=== PATIENT | female | born 1950 | race Caucasian/White ===

== ENCOUNTER → 2016-10-30 | Outpatient (CLI) | payer OTHER | LOC: CIMAGING 10:16 | DX: Z12.31 Encounter for screening mammogram for malignant neoplasm of breast (principal) | CPT/HCPCS: G0202 ==

== ENCOUNTER 2017-07-12 06:30 | Day surgery (SDC) | payer OTHER ==
[~2017-07-12 06:30] MED LIST: ceFAZolin 2 GM/SWFI 2 GM/20 ML SYR IVP ONE
[2017-07-12] MEDS ORDERED: LIDOCAINE 1% 2 ML INJ ONE (06:55)
[2017-07-12] MEDS ORDERED: LR 1,000 ML IV ONE (07:06)
[2017-07-12] MEDS ORDERED: LIDOCAINE 1% 2 ML INJ ID PRN (07:06)
[2017-07-12 07:25] VITALS: PULSE 70
[2017-07-12] MEDS ORDERED: ceFAZolin 2 GM/SWFI 2 GM/20 ML SYR IVP ONE (07:30)
--- NOTE | 2017-07-12 07:36 | PDHPUP ---
History & Physical Update H&P update statement: This history and physical update is based on an assessment of the patient which was completed after admission or registration (within 24 hours), but prior to the surgery/procedure.
[2017-07-12] MEDS ORDERED: BUPIVACAINE 0.25% 30 ML SDV ONE (07:41)
[2017-07-12] MEDS ORDERED: ceFAZolin 1 GM/5 ML SYR ONE (07:42)
[2017-07-12] MEDS ORDERED: MIDAZOLAM 2 MG/2 ML VIAL IVP ONE (08:01)
--- NOTE | 2017-07-12 08:03 | PDANEPAE ---
ANE Past Medical History - Cardiovascular History Hx Hypertension: No Hx Arrhythmias: No Hx Chest Pain: No Hx Coronary Artery / Peripheral Vascular Disease: No Hx CHF / Valvular Disease: No - Pulmonary History Hx COPD: No Hx Asthma/Reactive Airway Disease: Yes Hx Recent Upper Respiratory Infection: No Hx Oxygen in Use at Home: No Hx Sleep Apnea: No Sleep Apnea Screening Result - Last Documented: Negative - Neurologic History Hx Cerebrovascular Accident: No Hx Seizures: No Hx Dementia: No - Endocrine History Hx Diabetes: No - Renal History Hx Renal Disorders: No - Liver History Hx Hepatic Disorders: No - Neurological & Psychiatric Hx Hx Neurological and Psychiatric Disorders: No - Cancer History Hx Cancer: No - Congenital Disorder History Hx Congenital Disorders: No - GI History Hx Gastrointestinal Disorders: No - Other Health History Other Health History: BRUISES EASILY - Chronic Pain History Chronic Pain: No - Surgical History Prior Surgeries: R CATARACT 10/02. N/A ANE Review of Systems Review of Systems: - Exercise capacity METS (RN): 4 METS ANE Patient History - Allergies Allergies/Adverse Reactions: metronidazole [From Flagyl] Allergy (Verified 06/06/12 19:10) IRRITATION Metronidazole HCl [From Flagyl] Allergy (Verified 04/13/11 07:22) - Home Medications Home medications: home medication list seen and reviewed, over the counter medications & supplements Home Medications: Ascorbic Acid 06/25/17 [Last Taken 06/21/17] Aspirin 81mg (*) 06/25/17 [Last Taken 06/21/17] Calcium + D3 ER Tablet 06/25/17 [Last Taken 06/21/17] Cranberry 06/25/17 [Last Taken 06/21/17] Glucosamine & Chondroitin Cap 06/25/17 [Last Taken 06/21/17] Multi-Vitamin Daily 06/25/17 [Last Taken 06/21/17] VITAMIN D 06/25/17 [Last Taken 06/21/17] Vitamin E 06/25/17 [Last Taken 06/21/17] - NPO status NPO Since - Liquids (Date): 07/11/17 NPO Since - Liquids (Time): 19:00 NPO Since - Solids (Date): 07/11/17 NPO Since - Solids (Time): 19:00 - Anes Hx Anes Hx: no prior problems - Smoking Hx Smoking Status: Light smoker - Family Anes Hx Family Hx Anesthesia Complications: NONE ANE Labs/Vital Signs - Vital Signs Blood Pressure: 135/79 Heart Rate: 70 Respiratory Rate: 18 O2 Sat (%): 92 Height: 160.02 cm Weight: 71.214 kg ANE Physical Exam - Airway Mallampati Score: Class 2 Mouth exam: normal dental/mouth exam - Pulmonary Pulmonary: no respiratory distress, no rales or rhonchi, clear to auscultation - Cardiovascular Cardiovascular: regular rate and rhythym, no murmur, rub, or gallop - ASA Status ASA Status: I ANE Anesthesia Plan Anesthesia Plan: GA with mask
[2017-07-12] MEDS ORDERED: fentaNYL 100 MCG/2 ML INJ ONE (08:11)
[2017-07-12] MEDS ORDERED: PROPOFOL/EMULSION 500 MG/50 ML BOTTLE IV ONE (08:11)
[2017-07-12] MEDS ORDERED: DEXAMETHASONE 4 MG/ML VIAL ONE ×2 (08:13)
[2017-07-12] MEDS ORDERED: OXYCODONE/APAP 5/325 TAB PO PRN (09:20)
[2017-07-12] MEDS ORDERED: HYDROCODONE/APAP 5/325 TAB PO PRN (09:20)
[2017-07-12] MEDS ORDERED: fentaNYL 100 MCG/2 ML INJ IVP PRN (09:20)
[2017-07-12] MEDS ORDERED: LR 500 ML IV PRN (09:20)
[2017-07-12] MEDS ORDERED: ONDANSETRON 4 MG/2 ML VIAL IVP PRN (09:20)
[2017-07-12] MEDS ORDERED: MEPERIDINE 25 MG/ML SYR IVP PRN (09:20)
[2017-07-12] MEDS ORDERED: NALOXONE HCL 0.4 MG/ML INJ IVP PRN (09:20)
[2017-07-12] MEDS ORDERED: PROMETHAZINE HCL 25 MG/ML INJ IVP PRN (09:20)
[2017-07-12] MEDS ORDERED: ACETAMINOPHEN 500 MG TAB PO PRN (09:20)
--- NOTE | 2017-07-12 09:47 | POSTANESTH ---
Post Anesthetic Evaluation Cardiovascular Status: Normal, Stable, Similar to Pre-Op Cond Respiratory Status: Normal, Stable, Similar to Pre-op Cond. Level of Consciousness/Mental Status: Can Participate in Eval, Alert and Oriented Pain Control: Adequate, Prn Tx Ordered Nausea/Vomiting Control: Adequate, Prn Tx Ordered Complications Possibly Related to Anesthesia: None Noted
[2017-07-12 10:10] VITALS: RESP 18
[2017-07-12 10:20] VITALS: BP 161/76
[2017-07-12 10:34] VITALS: TEMP 97.9; O2SAT 93
--- NOTE | 2017-08-17 11:58 | GOP ---
[f rep st] OPERATIVE REPORT DATE OF OPERATION: 07/12/2017 SURGEON: Jaiden Gutierrez DPM KERRICK KLEANER OPERATOR: Daniel. ANESTHESIOLOGIST: Herminia. PREOPERATIVE DIAGNOSIS: 1. Hallux abductovalgus. 2. Metatarsus primus adductus. POSTOPERATIVE DIAGNOSIS: 1. Hallux abductovalgus. 2. Metatarsus primus adductus. PROCEDURE PERFORMED: 1. Modified Stovall bunionectomy with osteotomy of large medial hyperostosis. 2. V osteotomy, 1st metatarsal neck level. FINDINGS: SPECIMENS: No specimen. ESTIMATED BLOOD LOSS: Minimal. DESCRIPTION OF PROCEDURE: The patient was taken to the operating room and placed on the table in the supine position. Local anesthetic was administered by Dr. Gutierrez during concomitant and IV sedation by Dr. Hope. The patient's right foot, ankle, and lower leg were prepped and draped in the usual a septic manner establishing a sterile field for surgery. Disposable pneumatic tourniquet over heavy K erlix padding at ankle level was inflated to 225 mmHg following sterile Esmarch bandage exsanguinatio n of the foot. This provided intraoperative hemostasis. A skin knife made a 9 cm linear incision me dial to the extensor tendon. The incision was deepened. Bleeding vessels clamped and bovied. Vital structures identified and retracted. Soft tissue planes were developed about the joint and the inte rmetatarsal space was entered. A lateral release was performed consisting of release of the adductor and brevis tendons and sesamoid release. These maneuvers effectively relieved lateral soft tissue c ontracture. An inverted L capsulotomy gained access to the joint capsule and periosteum were reflect ed from about the head and neck of the metatarsal exposing a large medial hyperostosis. Utilizing th e oscillating saw, osteotomy was performed removing medial aspect of the 1st metatarsal head flush wi th the shaft of the metatarsal. During all bone cuts, antibiotic solution drip prevented bone burnin g. Following cuts removed debris and intermittently throughout surgery prevented tissue drying. Nex t, a 0.45 Delma wire was driven to function as apex for osteotomy guide which was employed to per form the long dorsal wing V osteotomy at 1st metatarsal neck level. The capital fragment was displac ed. The appropriate amount on the shaft of the metatarsal firmly impacted with hand pressure tempora rily fixated with a K-wire, and permanent fixation was with 2.0 mm cortical screw from the [employer] mo dular hand set. 2 screws were used and with appropriate AO technique, fixation was firm and appositi on excellent. The K-wire was removed, the screws tightened, and the redundant distal medial shaft of the metatarsal was resected flush with the transposed capital fragment. A bur smoothed all cut bone edges. Copious irrigation removed all debris. Minimal medial capsular tissues were reefed. Medial c apsular closure was with 2-0 Vicryl, dorsal with 3-0 Vicryl. Alignment of the hallux was excellent a nd phalangeal osteotomy was not indicated. A repeated copious antibiotic solution flush was performe d throughout closure. Subcutaneous closure with 5-0 Vicryl, skin with 5-0 Prolene. Betadine-soaked Adaptic was laid over the incision and the foot to complete sterile dressing. The tourniquet was rel eased. Digital circulation returned to normal immediately. Hemostasis was well maintained. The pat ient was taken to Recovery in good condition, having tolerated surgery and anesthesia well. COMPLICATIONS: No complications. POSTOPERATIVE INSTRUCTIONS: Previously gone over were reinforced. PROGNOSIS: Good. SNR including below. /[id number]/MODL
== END 2017-07-12 10:33 | disposition home or self-care (01) ==
LOC: FSGY 06:30
PROVIDERS: ATTEND Podiatrist Primary Podiatric Medicine
PROC: 0QBN0ZZ Excision of Right Metatarsal, Open Approach (ICD-10-PCS; principal; 2017-07-12 08:15)
DX: M20.11 Hallux valgus (acquired), right foot (principal); Q66.22 Congenital metatarsus adductus
CPT/HCPCS: C1713; J0171; J0690; J1100; J2250; J2704; J3010

== ENCOUNTER → 2017-12-16 | Outpatient (CLI) | payer OTHER | LOC: CIMAGING 13:11 | PROVIDERS: ATTEND Nurse Practitioner Family | DX: Z12.31 Encounter for screening mammogram for malignant neoplasm of breast (principal) ==